=== PATIENT | female | born 1985 | race African-American/Black ===

== ENCOUNTER 2018-09-15 13:29 | Emergency (ER) | payer OTHER ==
[~2018-09-15] VITALS: Ht 160 cm; Wt 63.5 kg
[2018-09-15 16:50] VITALS: BP 101/53
== END 2018-09-15 16:51 | disposition home or self-care (01) ==
LOC: EDBD 13:29 → ER 13:29
DX: N63.0 Unspecified lump in unspecified breast (principal)

== ENCOUNTER → 2018-09-17 | Outpatient (CLI) | payer OTHER | LOC: RAD 10:42 | DX: R92.2 Inconclusive mammogram (principal) ==